=== PATIENT | male | born 2000 | race Caucasian/White ===

== ENCOUNTER 2019-02-21 12:18 | Emergency (ER) | payer BC ==
[~2019-02-21] VITALS: Ht 177.8 cm; Wt 61.4 kg
[2019-02-21 12:24] VITALS: BP 129/75; PULSE 89; TEMP 98.2
== END 2019-02-21 14:47 | disposition home or self-care (01) ==
LOC: COL.ER 12:18
DX: S06.0X0A Concussion without loss of consciousness, initial encounter (principal); S01.111A Laceration without foreign body of right eyelid and periocular area, initial encounter; W19.XXXA Unspecified fall, initial encounter; Y92.410 Unspecified street and highway as the place of occurrence of the external cause